=== PATIENT | male | born 1970 | race African-American/Black ===

== ENCOUNTER 2021-07-16 08:04 | Day surgery (SDC) | payer BC ==
[2021-07-13 15:24] VITALS: BMI 27.2
[2021-07-16 09:56] VITALS: BP 106/58
[2021-07-16 09:58] VITALS: PULSE 58; TEMP 98
== END 2021-07-16 10:30 | disposition home or self-care (01) ==
LOC: FASU-ENDO 08:04
PROVIDERS: ATTEND Internal Medicine Gastroenterology
PROC: 0DBN8ZX Excision of Sigmoid Colon, Via Natural or Artificial Opening Endoscopic, Diagnostic (ICD-10-PCS; 2021-07-16)
PROC: 0DBP8ZX Excision of Rectum, Via Natural or Artificial Opening Endoscopic, Diagnostic (ICD-10-PCS; principal; 2021-07-16 09:21)
DX: Z12.11 Encounter for screening for malignant neoplasm of colon (principal); D12.8 Benign neoplasm of rectum; D12.5 Benign neoplasm of sigmoid colon; Z83.71 Family history of colonic polyps
CPT/HCPCS: 88305-TC